=== PATIENT | female | born 1995 | race Two or more races ===

== ENCOUNTER 2022-11-06 16:34 | Emergency (ER) | payer OTHER ==
[~2022-11-06] VITALS: Ht 157.5 cm; Wt 52.2 kg
[2022-11-06] MEDS ORDERED: NEXIUM2.5 MG PO (16:48)
== END 2022-11-06 19:34 | disposition home or self-care (01) ==
LOC: ER 16:34
DX: J34.0 Abscess, furuncle and carbuncle of nose (principal)

== ENCOUNTER 2023-02-22 13:23 | Emergency (ER) | payer OTHER ==
[~2023-02-22] VITALS: Ht 157.5 cm; Wt 48.5 kg
[~2023-02-22 13:23] MED LIST: NEXIUM2.5 MG PO
[2023-02-22 16:33] LABS: HEMATOCRIT 39.8 % (36.0-45.00); HEMOGLOBIN 12.9 g/dL (12.0-15.00); MEAN CORPUSCULAR HEMOGLOBIN 26.6 pg (27.00-32.0); MEAN CORPUSCULAR HGB CONC 32.4 g/dl (32.0-36.0); PLATELET COUNT 272 K/uL (150-450); RED BLOOD COUNT 4.86 M/uL (4.00-6.00); RED CELL DISTRIBUTION WIDTH 14.9 % (11.5-14.5)
== END 2023-02-22 18:51 | disposition home or self-care (01) ==
LOC: ER 13:23
DX: J10.1 Influenza due to other identified influenza virus with other respiratory manifestations (principal); Z20.822 Contact with and (suspected) exposure to COVID-19

== ENCOUNTER 2023-08-01 18:29 | Emergency (ER) | payer OTHER ==
[~2023-08-01] VITALS: Ht 157.5 cm; Wt 58.5 kg
[2023-08-01] MEDS ORDERED: CEFTRIAXONE SODIUM 1,000 MG VIAL IM STA (19:51)
[2023-08-01] MEDS ORDERED: CEFADROXIL500 MG PO (20:03)
[2023-08-01] MEDS ORDERED: FLONASE16 GM IH (20:03)
== END 2023-08-01 20:06 | disposition home or self-care (01) ==
LOC: ER 18:29
DX: J32.9 Chronic sinusitis, unspecified (principal)

== ENCOUNTER 2025-04-20 15:56 | Emergency (ER) | payer OTHER ==
[~2025-04-20] VITALS: Ht 157.5 cm; Wt 55.8 kg
[~2025-04-20 15:56] MED LIST changes: +CEFADROXIL500 MG PO; +FLONASE16 GM IH
[2025-04-20] MEDS ORDERED: IMODIUM A-D2 M2 (17:10)
[2025-04-20] MEDS ORDERED: CEFTRIAXONE SODIUM 1,000 MG VIAL IV ONE (17:30)
[2025-04-20] MEDS ORDERED: FAMOTIDINE/PF 20 MG/2 ML VIAL IV ONE (17:30)
[2025-04-20] MEDS ORDERED: ACETAMINOPHEN 500 MG GEL..CAP PO ONE ×2 (17:30→17:31)
[2025-04-20] MEDS ORDERED: 0.9 % SODIUM CHLORIDE 1,000 ML IV SCH (17:30)
[2025-04-20] MEDS ORDERED: FAMOTIDINE/PF 20 MG/2 ML VIAL ONE (17:31)
[2025-04-20] MEDS ORDERED: CEFTRIAXONE SODIUM 1,000 MG VIAL ONE (17:31)
[2025-04-20 18:06] LABS: BASO % 0.4 % (0.1-1.2); EOS # 0.08 (0.04-0.54); EOS % 0.6 % (0.7-7.0); LYMPH # 1.42 (1.18-3.74); LYMPH % 11.0 % (19.3-53.1); MEAN PLATELET VOLUME 10.30 fl (9.4-12.4); MONO # 0.71 (0.24-0.82); MONO % 5.5 % (4.7-12.5); NEUT # 10.60 (1.56-6.13); NEUT % 82.1 % (34.0-71.1); RED CELL DISTRIBUTION WIDTH 13.0 % (11.6-14.4)
[2025-04-20 18:25] LABS: COVID-19 AG NEGATIVE (NEGATIVE)
[2025-04-20 18:36] LABS: ALT/SGPT 20.0 U/L (12-78); AST/SGOT 12.0 U/L (15-37); BILIRUBIN TOTAL 0.46 mg/dL (0.3-1.2); BUN CREA RATIO 20.0 (7.0-25.0); CREATININE SERUM 0.49 mg/dL (0.55-1.02); GFR 151.49; GLOBULINA 3.7 G/DL (2.4-3.5); GLUCOSE FASTING 78.0 mg/dL (65-100); OSMOLALITY SERUM 275.0 MOSM/KG (275-295)
[2025-04-20] MEDS ORDERED: CHLORASEPTIC177 M2 MM (19:31)
[2025-04-20] MEDS ORDERED: AMOX-CLAV 875-1 EACH PO (19:31)
[2025-04-20] MEDS ORDERED: INTESTINEX680 M1 PO (19:31)
[2025-04-20] MEDS ORDERED: PEPCID AC20 MG PO (19:31)
== END 2025-04-20 19:56 | disposition home or self-care (01) ==
LOC: ER 15:57
PROVIDERS: Student in an Organized Health Care Education/Training Program
DX: J03.80 Acute tonsillitis due to other specified organisms (principal); B96.89 Other specified bacterial agents as the cause of diseases classified elsewhere; J35.8 Other chronic diseases of tonsils and adenoids; R50.9 Fever, unspecified; R51.9 Headache, unspecified; Z20.822 Contact with and (suspected) exposure to COVID-19